=== PATIENT | male | born 1945 | race Caucasian/White ===

== ENCOUNTER → 2018-07-12 09:39 | Outpatient (CLI) | payer MEDICARE, MEDICAID, SELFPAY ==
--- NOTE | 2018-07-12 09:55 | XR_ITS ---
XR chest 2V HISTORY: ITS.REASON: CJEST PAIN ORDERING PHYSICIAN: Alejandra Daley PATIENT AGE: 72 years COMPARISON: None FINDINGS: The cardiomediastinal silhouette and pulmonary vascularity are within normal limits. The lungs are clear without infiltrates, suspicious nodules, or pleural effusions. No acute bony abnormalities. IMPRESSION: Negative chest, no acute finding
--- NOTE | 2018-07-12 09:55 | XR_ITS ---
EXAM: XR thoracic spine 3V HISTORY: ITS.REASON: ACUTE THORACIC BACK PAIN Comparison: None FINDINGS: There is mild upper thoracic curvature convex right. Bridging osteophyte is present on the left at T10-T11. Anterior osteophytes are present in the mid lower thoracic spine. No acute fracture or dislocation. No lytic or blastic change. IMPRESSION: Minimal upper thoracic scoliosis convex right with degenerative changes
== END ==
PROVIDERS: PCP Nurse Practitioner Family; Visit Provider Nurse Practitioner Family
DX: M54.6 Pain in thoracic spine (principal); R07.9 Chest pain, unspecified
CPT/HCPCS: 71046; 72072

== ENCOUNTER → 2021-06-15 09:33 | Outpatient (CLI) | payer MEDICARE, MEDICAID, SELFPAY ==
--- NOTE | 2021-06-15 09:42 | CT_ITS ---
PROCEDURE: CT HEAD/BRAIN WO CON CLINICAL INDICATION: DIZZINESS,LT ARM WEAKNESS LT HAND NUMBNESS COMPARISON: No exams were available for comparison TECHNIQUE: Axial images obtained. All CT scans at the facility use one or more dose reduction, viz: automated exposure control, ma/kV adjustment per patient size (including targeted exams where dose is matched to indication, i.e. head), or iterative reconstruction technique. FINDINGS: No midline shift, mass effect, intracranial hemorrhage, hydrocephalus, or extra-axial fluid collection is evident. There is generalized atrophy with hypoattenuation of the periventricular white matter consistent with microangiopathic changes. The calvarium has an unremarkable appearance. No mastoid effusion. Suspect postsurgical change of the right maxillary sinus superiorly. IMPRESSION: No acute intracranial finding Dictated by: Magnus Hunter MD 06/15/2021 10:29 Magnus Hunter MD in [place] 06/15/2021 10:29
== END ==
PROVIDERS: PCP Nurse Practitioner Family; Visit Provider Nurse Practitioner Family
DX: R42 Dizziness and giddiness (principal); R29.898 Other symptoms and signs involving the musculoskeletal system; R20.0 Anesthesia of skin
CPT/HCPCS: 70450

== ENCOUNTER → 2021-06-22 13:53 | Outpatient (CLI) | payer MEDICARE, MEDICAID, SELFPAY ==
--- NOTE | 2021-06-22 14:00 | CA_ITS ---
APPROVED REPORT Plate Take Out Worker: KARLA Laterality: Bilateral Study Quality: Good Indications: Vertigo, HTN, hx of MN Risk Factors Hypertension: Doppler Spectral Velocity Analysis ECA (R) 139.00/26.70 cm/s ECA (L) 132.90/27.00 cm/s dICA (R) 107.70/37.40 cm/s dICA (L) 87.40/36.00 cm/s Karla (R) 99.50/38.90 cm/s Karla (L) 85.80/34.10 cm/s pICA (R) 68.10/23.90 cm/s pICA (L) 87.40/34.30 cm/s dCCA (R) 117.60/27.80 cm/s dCCA (L) 86.50/19.70 cm/s pCCA (R) 115.50/31.00 cm/s pCCA (L) 147.60/37.40 cm/s Vert (R) 55.60/10.70 cm/s Vert (L) 53.90/14.10 cm/s ICA/CCA 0.92 ICA/CCA 1.01 Findings Duplex evaluation demonstrates stenosis of the right proximal internal carotid artery <20%, unchanged since study 08/15/16. Duplex evaluation demonstrates stenosis of the left proximal internal carotid artery <20%, unchanged since study 08/15/16. Conclusion Duplex evaluation demonstrates stenosis of the right proximal internal carotid artery <20%, unchanged since study 08/15/16. Duplex evaluation demonstrates stenosis of the left proximal internal carotid artery <20%, unchanged since study 08/15/16. Electronically signed by : Magnus Hunter MD 06/22/2021 16:38:51
== END ==
PROVIDERS: PCP Nurse Practitioner Family; Visit Provider Nurse Practitioner Family
DX: R42 Dizziness and giddiness (principal)
CPT/HCPCS: 93880

== ENCOUNTER 2021-10-31 12:07 | Emergency (ER) | payer MEDICARE, MEDICAID, SELFPAY ==
[2021-10-31 13:57] VITALS: BP 128/77; PULSE 65; RESP 18; TEMP 36.6; O2SAT 96; BMI 29.0
--- NOTE | 2021-10-31 14:13 | HMH.EDUTC ---
[facility] [place] Dis[place] Clinical Impression: Left against medical advice, Leg edema, right, Right leg pain, Homans sign present Disposition: Left Against Medical Advice Condition on Discharge: Fair Referrals: Alejandra Daley APRN [Primary Care Provider] - Time of Disposition: 15:08 Medical Decision Making - Medical Records Medical records reviewed: No: I reviewed the patient's medical records. - Wilfredo Inquiry Pt receiving controlled substance: No Vital Signs: 10/31/21 13:57 10/31/21 15:04 Temperature 97.9 F 0 F L Temperature Source Oral Pulse Rate 0 L Pulse Rate [Left] 65 Respiratory Rate 18 0 L Blood Pressure 0/0 L Blood Pressure [Right Arm] 128/77 Blood Pressure Mean [Right Arm] 94 02 Sat by Pulse Oximetry 96 Orders (Tests/Meds): ORDERS Category Date Time Status CA venous doppler LE RT Stat Y 10/31/21 14:30 Ordered Medical Decision Narrative: He left AMA. He did not want to wait for the [place] tech to arrive to do the doppler of his leg. I explained to him that with his symptoms he likely does have a blood clot in his leg and it could break loose and go to his lungs and cause him to . He verbalized understanding of this, but says he will see his pcp tomorrow and go from there. He signed AMA paperwork. [facility] [place] HPI - General Stated complaint: right knee to foot swelling Time Seen by Provider: 10/31/21 14:13 Mode of Arrival: Ambulatory Source of Information: Patient Limitations: No Limitations Description of Symptoms (Recalled from Triage Doc. by RN): pt c/o R lower leg swelling and calf pain. pt presents with 2+ edema and calf tenderness to the touch. no recent injury. HEENT Symptoms (Recalled from RN notes): No Resp Symptoms (Recalled from RN notes): No Skin Symptoms (Recalled from RN notes): No MS Symptoms (Recalled from RN notes): Yes Functional Status (Recalled from RN notes): wnl - History of Present Illness Provider Complaint: He has right leg swelling that started 3 days ago. He states that he is having pain in the back of his calf. His left leg is not swollen. He denies any shortness of breath or chest pain. - Related Data Home Medications Medication Instructions Recorded Confirmed diclofenac sodium 75 mg 75 mg PO BID tab 06/28/21 06/28/21 tablet,delayed release doxazosin 2 mg tablet 2 mg PO DAILY tab 06/28/21 06/28/21 lisinopril 20 mg tablet 20 mg PO DAILY tab 06/28/21 06/28/21 pravastatin 20 mg tablet 20 mg PO DAILY tab 06/28/21 06/28/21 Allergies Allergy/AdvReac Type Severity Reaction Status Date / Time No Known Allergies Allergy Verified 06/28/21 09:40 - Worker's Comp Is this a Worker's Comp case?: No [facility] History - Hepatitis A Screen Drug use history?: No High risk sexual behaviors?: No History of sexually transmitted infection?: No Currently employed?: No Childcare worker?: No Do you have indoor plumbing?: Yes Do you have electricity?: Yes Attestation statement:: This patient has been screened for Hepatitis A risk factors. Medical History: Reports:: Hypertension Other Surgeries: Yes: No Previous Surgery - Social History Smoking Status: Light tobacco smoker Tobacco Type: smokeless tobacco Alcohol Intake: never Substance Use Type: denies use Occupational Status: other Family Hx:: Cancer, Hypertension, Stroke ROS Obtained: Yes All systems reviewed & no additional complaints - Constitutional Constitutional: Denies chills, Denies fever(s) - Eyes Eyes: Denies eye discharge - ENT Ears, Nose, Mouth, and Throat: Denies dizziness, Denies otalgia, Denies sore throat - Cardiovascular Cardiovascular: Denies chest pain - Respiratory Respiratory: Denies chest congestion, Denies cough, Denies dyspnea, Denies stridor, Reports wheezing - Gastrointestinal Gastrointestingal: Denies: abdominal pain, diarrhea, nausea, vomiting - Musculoskeletal Musculoskeletal: Reports as per HPI, Denies back pain - Integumentary/Breasts Skin/Breast:
--- NOTE | 2021-10-31 15:02 | PC.NURSE ---
pt states he can not wait any longer. pt educated on the severity of blood clots and the potential risks against leaving without a venous doppler by myself and Yoandy Gandara APRN.
[2021-10-31 15:04] VITALS: BP 0/0; PULSE 0; RESP 0; TEMP -17.7; TEMP 0
== END 2021-10-31 15:05 | disposition left against medical advice (07) ==
LOC: UTC 12:11
PROVIDERS: Emergency Provider Nurse Practitioner Family; PCP Nurse Practitioner Family
DX: M79.604 Pain in right leg (principal); R60.0 Localized edema; I10 Essential (primary) hypertension
CPT/HCPCS: G0463; 99202

== ENCOUNTER → 2021-11-01 12:52 | Outpatient (CLI) | payer MEDICARE, MEDICAID, SELFPAY ==
--- NOTE | 2021-11-01 13:25 | CA_ITS ---
FINAL REPORT TECHNIQUE: Right lower extremity venous duplex was performed with augmentation and compression. CLINICAL HISTORY: EDEMA FINDINGS: Proper flow is seen throughout the deep venous system. There is no evidence of deep venous thrombosis. There is a 4.6 cm Herbert's cyst. IMPRESSION: no deep venous thrombosis. Reviewed, Interpreted and Dictated by [place] Grimaldo MD Transcribed by Adriana Garrett Authenticated by Montana Grimaldo MD on 11/02/2021 04:19:37 PM [facility]
[2021-11-01 14:17] LABS: Basophils # 0.1 K/mm3 (0-0.2); Basophils % 1.3 % (0.1-2.0); Eosinophils # 0.3 K/mm3 (0.0-0.4); Eosinophils % 5.1 % (0.1-12.0); Hematocrit 49.7 % (42.0-52.0); Hemoglobin 15.9 g/dL (14.1-18.0); Lymphocytes # 1.7 K/mm3 (0.7-4.5); Lymphocytes % 27.9 % (10-50); Mean Corpuscular HGB Conc 31.9 g/dL (31.8-35.4); Mean Corpuscular Hemoglobin 31.9 pg (27.0-31.2); Mean Corpuscular Volume 99.8 fl (80-94); Mean Platelet Volume 8.7 fl (7.4-10.4); Monocytes # 0.4 K/mm3 (0.1-1.0); Monocytes % 6.5 % (1.7-9.3); Neutrophils # 3.6 K/mm3 (1.8-7.8); Neutrophils % 59.3 % (37.0-80.0); Platelet Count 218 K/mm3 (142-424); Red Blood Count 4.98 M/mm3 (4.60-6.20); Red Cell Distribution Width 13.1 % (11.5-17.5); White Blood Count 6.1 K/mm3 (4.8-10.8)
[2021-11-01 14:42] LABS: Potassium 4.6 mmoL/L (3.5-5.1)
[2021-11-01 14:44] LABS: Alanine Aminotransferase 21 U/L (12-78); Alkaline Phosphatase 89 U/L (38-126); Aspartate Amino Transferase 32 U/L (17-59); Bilirubin,Total 0.5 mg/dl (0.2-1.3); Blood Urea Nitrogen 23 mg/dl (9-20); Carbon Dioxide 31 mmol/L (22.0-30.0); Estimated Glomerular Filt Rate 54 ml/min (>60); GFR (African American) 65 ML/MIN (>60)
[2021-11-01 14:56] LABS: Direct LDL Cholesterol 123.54 mg/dL (100-129)
[2021-11-01 15:15] LABS: Thyroid Stimulating Hormone 1.64 uIU/mL (0.465-4.68)
[2021-11-01 15:17] LABS: Albumin Level 3.8 g/dl (3.5-5.0); Albumin/Globulin Ratio 1.4 (1.1-1.8); Anion Gap 8.6 mEq/L (5-15); Calcium 9.2 mg/dl (8.4-10.2); Chloride 103 mmol/L (98-107); Chol/HDL Ratio 6.7 (1-3.5); Cholesterol 194 mg/dl (140-200); Globulin 2.8 g/dL (1.3-3.2); Glucose 89 mg/dl (74-100); HDL Cholesterol 29 mg/dl (40-60); Sodium 138 mmol/L (136-145); Total Protein,Serum 6.6 g/dl (6.3-8.2); Triglycerides 211 mg/dl (30-150); VLDL Cholesterol 42 mg/dL (0-40)
== END ==
PROVIDERS: PCP Nurse Practitioner Family; Visit Provider Nurse Practitioner Family
DX: M79.661 Pain in right lower leg (principal); M79.89 Other specified soft tissue disorders; E78.5 Hyperlipidemia, unspecified
CPT/HCPCS: 36415; 80053; 80061; 84443; 85025; 93971